=== PATIENT | male | born 1950 | race Two or more races ===

== ENCOUNTER 2020-07-19 11:45 | Outpatient (REF) | payer MEDICARE, SELFPAY | END 2020-07-19 11:46 | disposition home or self-care (01) | LOC: HO.LAB 11:45 | PROVIDERS: PCP Nurse Practitioner Family; Visit Provider Internal Medicine | DX: Z20.828 Contact with and (suspected) exposure to other viral communicable diseases (principal) | CPT/HCPCS: 87635 ==

== ENCOUNTER 2021-01-24 09:15 | Outpatient (REF) | payer MEDICARE, SELFPAY ==
[2021-01-24 11:12] LABS: PSA,Total (Free>4and<10) 0.64 ng/mL (0.00-4.00)
== END 2021-01-24 09:16 | disposition home or self-care (01) ==
LOC: HO.LAB 09:15
PROVIDERS: PCP Nurse Practitioner Primary Care; Visit Provider Urology
DX: N40.1 Benign prostatic hyperplasia with lower urinary tract symptoms (principal); N13.8 Other obstructive and reflux uropathy; Z12.5 Encounter for screening for malignant neoplasm of prostate
CPT/HCPCS: 36415; 84153

== ENCOUNTER → 2021-01-25 11:19 | Outpatient (BNVA) | payer MEDICARE, SELFPAY | PROVIDERS: PCP Nurse Practitioner Family; Visit Provider Urology | DX: Z13.89 Encounter for screening for other disorder (principal) | CPT/HCPCS: Q3014 ==

== ENCOUNTER 2023-04-26 11:10 | Outpatient (REF) | payer MEDICARE, SELFPAY ==
[2023-04-26 14:35] LABS: Prostate Specific Antigen 0.59 ng/mL (<0.05-4.0)
[2023-04-26 20:03] LABS: Appearance Urine Clear; Color Urine Yellow; Glucose Urine UA Negative (Negative); Leukocyte Esterase Urine Negative (Negative); Nitrite Urine Negative (Negative); PH 7.5 (5.0-9.0); Urine Blood Negative (Negative); Urine Ketones Negative (Negative); Urine Protein Negative (Neg-Trace)
== END 2023-04-26 11:11 | disposition home or self-care (01) ==
LOC: HO.HHCL 11:10
PROVIDERS: Visit Provider Family Medicine
DX: Z12.5 Encounter for screening for malignant neoplasm of prostate (principal); R30.0 Dysuria
CPT/HCPCS: 36415; 81003; 84153

== ENCOUNTER 2023-04-27 08:45 | Outpatient (REF) | payer MEDICARE, SELFPAY ==
--- NOTE | ~2023-04-27 | XR_ITS ---
EXAMINATION: XR LUMBOSACRAL SPINE WITH OBLIQUES CLINICAL INFORMATION: Low back pain radiating to left leg. COMPARISON: 10/31/2011 lumbar spine radiographs. TECHNIQUE: AP, both oblique, and lateral views of the lumbar spine. Lateral view of the lumbosacral junction. FINDINGS: There is normal lumbar lordosis and spinal alignment. Transitional anatomy is noted. Mild multilevel degenerative changes with degenerative disc disease most pronounced at L5-S1. There is no acute fracture. The soft tissues are unremarkable. Surgical clips overlie the mid to lower abdomen. XR/XR lumbar spine 4V min IMPRESSION: Transitional anatomy and mild multilevel degenerative changes without significant change. No acute abnormality.
== END 2023-04-27 08:46 | disposition home or self-care (01) ==
LOC: HO.HHCX 08:45
PROVIDERS: Visit Provider Family Medicine
DX: M54.50 Low back pain, unspecified (principal); M79.605 Pain in left leg
CPT/HCPCS: 72110

== ENCOUNTER 2024-06-17 08:02 | Outpatient (REF) | payer MEDICARE, SELFPAY ==
[2024-06-17 11:29] LABS: MANUAL DIFF FLAG NO
[2024-06-17 11:33] LABS: Basophils Percent Auto 0.8 % (0-2); Eosinophils Absolute Auto 0.8 X10*3/uL (0.0-0.4); Eosinophils Percent Auto 15.2 % (0-4); Imm Gran Abs Auto 0.02 X10*3/uL (0.00-0.03); Imm Gran Pct Auto 0.4 % (0.0-0.4); Lymphocytes Absolute Auto 1.8 X10*3/uL (1.2-4.9); Lymphocytes Percent Auto 33.7 % (20-40); Mean Corpuscular HGB Conc 35.7 g/dl (31.0-36.0); Mean Corpuscular Hemoglobin 33.6 pg (27.0-33.0); Mean Platelet Volume 9.4 fL (9.4-12.4); Monocytes Absolute Auto 0.4 X10*3/uL (0.1-1.2); Monocytes Percent Auto 8.4 % (2-11); Neutrophils Absolute Auto 2.2 x10*3/uL (2.0-8.3); Neutrophils Percent Auto 41.5 % (45-73); Platelet Count 201 X10*3/uL (160-400); Red Blood Count 4.47 X10*6/uL (4.60-5.80); Red Cell Distribution Width 12.7 % (11.0-16.0); White Blood Count 5.3 X10*3/uL (4.8-10.8)
[2024-06-17 11:44] LABS: Estimated Average Glucose 97 mg/dL; Total Hemoglobin (HGBA1C) 3684.1233 umol/L
[2024-06-17 12:03] LABS: Alanine Aminotransferase 19 U/L (0-40); Alkaline Phosphatase 82 U/L (39-117); Anion Gap 7 (12-20); Aspartate Amino Transferase 23 U/L (5-37); Bilirubin Total 0.4 mg/dL (0.0-1.0); Blood Urea Nitrogen 7 mg/dL (9-16); Calcium 8.5 mg/dL (8.4-10.2); Carbon Dioxide 29 mmol/L (22-29); Chloride 102 mmol/L (96-108); Cholesterol 157 mg/dL (<200); Estimated Glomerular Filt Rate > 60; Glucose Random 89 mg/dL (60-115); HDL Cholesterol 41 mg/dL (>40); LDL Cholesterol Calculated 102 mg/dL (<100); Potassium 3.6 mmol/L (3.3-5.1); Sodium 134 mmol/L (135-145); Total Protein 7.1 g/dL (6.5-8.0); Triglycerides 70 mg/dL (<150)
[2024-06-17 12:20] LABS: HBS Num1 5.85 mIU/mL (0-7.99); HBc Num1 0.25 S/CO (0.00-0.79); HBsAGNum1 0.39 S/CO (0.00-0.99); HIV AB/AG Nonreactive (Nonreactive); HIV Num 1 0.05 S/CO (0.00-0.99); Hepatitis A Antibody IgM 0.29 Index (0-0.79); Hepatitis B Core Antibody Nonreactive (Nonreactive); Hepatitis B Surface Antigen Negative (Negative); ~HepC Num1 0.21 S/CO (0.00-0.79); ~Hepatitis A Antibody IgM Nonreactive (Nonreactive); ~Hepatitis B Surface Antibody NONREACTIVE (Nonreactive); ~Hepatitis C Antibody Nonreactive (Nonreactive)
[2024-06-17 14:07] LABS: Reflex LDLD? No
== END 2024-06-17 08:03 | disposition home or self-care (01) ==
LOC: HO.HHCL 08:02
PROVIDERS: Visit Provider Internal Medicine
DX: E78.2 Mixed hyperlipidemia (principal); Z13.1 Encounter for screening for diabetes mellitus
CPT/HCPCS: 36415; 80053; 80061; 83036; 85025; 86704; 86706; 86709; 86803; 87340; 87389

== ENCOUNTER 2024-08-04 11:23 | Day surgery (SDC) | payer OTHER, SELFPAY ==
[2024-07-31 14:35] VITALS: BMI 26.0
--- NOTE | 2024-08-01 09:59 | HO.ANESPROP2 ---
Documented by User: Elida Squires NP 08/01/24 10:00 HPI - Anesthesia Eval Consult details Narrative: 73yo M for Colonoscopy [facility] Active Problems Active Problems: All Active Problems BPH w urinary obs/LUTS (Acute) Past Medical History Medical History (Updated 07/31/24 @ 14:35 by Winter Sarkar RN) Renal stones GERD (gastroesophageal reflux disease) Hyperlipidemia Depression Other obstructive and reflux uropathy Benign prostatic hyperplasia with lower urinary tract symptoms Surgical History Surgical History (Updated 07/31/24 @ 14:35 by Winter Sarkar RN) H/O colonoscopy Hx of exploratory laparotomy Hx of appendectomy Social History Social History Patient Tobacco Use Status: Never used Tobacco Use of substances other than those prescribed or required for medical reasons: No Are you DNR?: No Advance Directives: No Advance Directives Information Provided: Yes Advance Directives on File: No Recently lost weight without trying: No Nutrition Risks: No Nutritional Risk Poor oral hygiene: No Meds Allergies Allergy/AdvReac Type Severity Reaction Status Date / Time baclofen Allergy Unknown Unknown Verified 01/25/21 11:20 ibuprofen [IBUPROFEN] Allergy Unknown RASH Verified 01/25/21 11:20 Home Medications ?Medication ?Instructions ?Recorded ?Confirmed ?Last Taken ?Type zolpidem 10 mg tablet 10 mg PO BEDTIME PRN Insomnia 01/25/21 07/31/24 Unknown History fluticasone propionate 50 1 spray intranasal DAILY 07/31/24 07/31/24 Unknown History mcg/actuation nasal spray,suspension pravastatin 10 mg tablet 10 mg PO DAILY 07/31/24 07/31/24 Unknown History Exam Height,Weight and Vital Signs: Height 5 ft 6 in Weight 73.028 kg Assessment and Plan Assessment Anesthesia Assessment: Chart Reviewed Documented by User: Saba Mcleod MD 08/04/24 13:34 [facility] Past Medical History Medical History (Updated 07/31/24 @ 14:35 by Winter Sarkar RN) Renal stones GERD (gastroesophageal reflux disease) Hyperlipidemia Depression Other obstructive and reflux uropathy Benign prostatic hyperplasia with lower urinary tract symptoms Family History Family history of problems with anesthesia: No Surgical History Surgical History (Updated 07/31/24 @ 14:35 by Winter Sarkar RN) H/O colonoscopy Hx of exploratory laparotomy Hx of appendectomy History of Problems with Anesthesia: No Social History Social History Patient Tobacco Use Status: Never used Tobacco Use of substances other than those prescribed or required for medical reasons: No Are you DNR?: No Advance Directives: No Advance Directives Information Provided: Yes Advance Directives on File: No Recently lost weight without trying: No Nutrition Risks: No Nutritional Risk Poor oral hygiene: No Meds Allergies Allergy/AdvReac Type Severity Reaction Status Date / Time baclofen Allergy Unknown Unknown Verified 01/25/21 11:20 ibuprofen [IBUPROFEN] Allergy Unknown RASH Verified 01/25/21 11:20 Home Medications ?Medication ?Instructions ?Recorded ?Confirmed ?Last Taken ?Type zolpidem 10 mg tablet 10 mg PO BEDTIME PRN Insomnia 01/25/21 07/31/24 Unknown History fluticasone propionate 50 1 spray intranasal DAILY 07/31/24 07/31/24 Unknown History mcg/actuation nasal spray,suspension pravastatin 10 mg tablet 10 mg PO DAILY 07/31/24 07/31/24 Unknown History Exam Airway Mallampati Class: II TM Dist: >3cm Neck ROM: Full Assessment and Plan Assessment Anesthesia Assessment: Anesthesia Plan Discussed Final Anesthetic Review Family History of Problems with Anesthesia: No History of Problems with Anesthesia: No NPO: Yes ASA Class: II Final Preanesthetic Review: No Changes in Pt Med Stat, Meds/Allgs Chart Reviewed, Consent Obtained/Reviewed and Anes Risks/Benef Reviewed Patient Risk: Intermediate Procedure Risk: Low Anesthetic Plan Anesthetic Plan: TIVA Disposition: Standard PACU
[2024-08-04 12:19] VITALS: BMI 25.0
[2024-08-04 12:22] VITALS: BP 159/81; PULSE 82; RESP 16; TEMP 36.9; O2SAT 97
[2024-08-04] MEDS: Lactated Ringers 1,000 ML 100 ML IVCONT (12:44)
--- NOTE | 2024-08-04 13:32 | P.CONAN_ITS ---
REPLACED BY [facility] Active Problems Active Problems: All Active Problems BPH w urinary obs/LUTS (Acute) Past Medical History Medical History (Updated 07/31/24 @ 14:35 by Winter Sarkar RN) Renal stones GERD (gastroesophageal reflux disease) Hyperlipidemia Depression Other obstructive and reflux uropathy Benign prostatic hyperplasia with lower urinary tract symptoms Family History Family history of problems with anesthesia: No Surgical History Surgical History (Updated 07/31/24 @ 14:35 by Winter Sarkar RN) H/O colonoscopy Hx of exploratory laparotomy Hx of appendectomy History of Problems with Anesthesia: No Social History Social History Patient Tobacco Use Status: Never used Tobacco Use of substances other than those prescribed or required for medical reasons: No Are you DNR?: No Advance Directives: No Advance Directives Information Provided: Yes Advance Directives on File: No Recently lost weight without trying: No Nutrition Risks: No Nutritional Risk Poor oral hygiene: No Meds Allergies Allergy/AdvReac Type Severity Reaction Status Date / Time baclofen Allergy Unknown Unknown Verified 01/25/21 11:20 ibuprofen [IBUPROFEN] Allergy Unknown RASH Verified 01/25/21 11:20 Active Medications: Current Medications Lactated Ringer's (Lr) 1,000 mls @ 100 mls/hr IVCONT .Q10H SAWYER Last Admin: 08/04/24 12:44 Dose: 100 mls/hr Sodium Biphosphate/Sodium Phosphate (Sodium Phosphate,Carroll-Dibasic 133 Ml Enema) 133 ml SD ONCE PRN PRN Reason: Poor Colonoscopy Prep Results Home Medications ?Medication ?Instructions ?Recorded ?Confirmed ?Last Taken ?Type zolpidem 10 mg tablet 10 mg PO BEDTIME PRN Insomnia 01/25/21 07/31/24 Unknown History fluticasone propionate 50 1 spray intranasal DAILY 07/31/24 07/31/24 Unknown His tory mcg/actuation nasal spray,suspension pravastatin 10 mg tablet 10 mg PO DAILY 07/31/24 07/31/24 Unknown History Exam Height,Weight and Vital Signs: Height 5 ft 6 in Weight 70.307 kg Last Vital Signs Temp 98.4 F 08/04/24 12:22 Pulse 82 08/04/24 12:22 Resp 16 08/04/24 12:22 BP 159/81 H 08/04/24 12:22 Pulse Ox 97 08/04/24 12:22 O2 Del Method Room Air 08/04/24 12:22 Airway Mallampati Class: II TM Dist: >3cm Neck ROM: Full Assessment and Plan Assessment Anesthesia Assessment: Anesthesia Plan Discussed and Chart Reviewed Final Anesthetic Review Family History of Problems with Anesthesia: No History of Problems with Anesthesia: No NPO: Yes ASA Class: II Final Preanesthetic Review: No Changes in Pt Med Stat, Meds/Allgs Chart Reviewed, Consent Obtained/Reviewed and Anes Risks/Benef Reviewed Patient Risk: Intermediate Procedure Risk: Low Anesthetic Plan Anesthetic Plan: TIVA Disposition: Standard PACU
[2024-08-04 14:25] VITALS: BP 103/61; PULSE 72; RESP 16; TEMP 36.5; O2SAT 95
--- NOTE | 2024-08-04 14:26 | PM.OP ---
Brief Operative Note Date of Service: 08/04/24 Pre-op diagnosis: Screening Post-op diagnosis: other (Diverticulosis) Procedure: Colonoscopy to the cecum Surgeon: Andrew Lagunas MD Anesthesia: MAC Was an Cutting Table Operator used for this Procedure?: No Estimated blood loss (mL): 0 Pathology: none sent Condition: stable Disposition: PACU
[2024-08-04 14:30] VITALS: BP 92/51; PULSE 66
[2024-08-04 14:40] VITALS: BP 96/58; PULSE 75; RESP 18; O2SAT 98
[2024-08-04 14:45] VITALS: BP 99/65
[2024-08-04 14:55] VITALS: BP 111/71; PULSE 67; RESP 18; TEMP 36.6; O2SAT 98
--- NOTE | 2024-08-05 01:01 | OP_ITS ---
DATE OF SERVICE: 08/04/2024 SURGEON: Andrew Lagunas MD INDICATIONS: The patient presents for evaluation of colorectal cancer screening and personal history of tubular adenomas of the colon. Full consent has been obtained from him for this, including risks of bleeding and perforation. PREOPERATIVE DIAGNOSIS: POSTOPERATIVE DIAGNOSIS: PROCEDURE PERFORMED: Colonoscopy to the cecum. ESTIMATED BLOOD LOSS: COMPLICATIONS: ANESTHESIA: Monitored anesthesia care. ASSISTANTS: SPECIMENS: PREOPERATIVE DIAGNOSES: Colorectal cancer screening and personal history of tubular adenoma of the colon. POSTOPERATIVE DIAGNOSES: Colorectal cancer screening and personal history of tubular adenoma of the colon, diverticulosis and internal hemorrhoids. DESCRIPTION OF PROCEDURE: The patient was placed in the left lateral decubitus position. The digital rectal exam revealed no abnormalities. The Olympus video pediatric colonoscope was entered into the rectum and advanced easily to the cecum. Once in the cecum, I did identify normal-appearing cecal pouch with appendiceal orifice, and a normal-appearing ileocecal valve. The entire cecum and ileocecal valve appeared normal. There was transillumination of light deep in the right lower quadrant. The scope was slowly withdrawn assessing all mucosal surfaces carefully. Preparation was excellent. I did not visualize any sign of polyps, colitis, nor angiodysplasia. There was a mild amount of sigmoid diverticulosis. In the rectum, scope was retroflexed visualizing internal hemorrhoids, but no other pathology. The rectal mucosa appeared normal. The scope was straightened and withdrawn from the patient. He tolerated the procedure well, and was returned to the recovery area in stable condition. IMPRESSION: 1. Diverticulosis. 2. Internal hemorrhoids. PLAN: Given his previous history of tubular adenomas, I would recommend a followup coloscopy in 5 years. He will otherwise see me on a p.r.n. basis. MD YAKOV Levine/JAVY / [id number]
== END 2024-08-04 15:30 | disposition home or self-care (01) ==
PROVIDERS: PCP Internal Medicine; Visit Provider Internal Medicine
PROC: 0DJD8ZZ Inspection of Lower Intestinal Tract, Via Natural or Artificial Opening Endoscopic (ICD-10-PCS; CPT 45378; principal; 2024-08-04 13:20)
DX: Z12.11 Encounter for screening for malignant neoplasm of colon (principal); Z86.0101 Personal history of adenomatous and serrated colon polyps; K57.30 Diverticulosis of large intestine without perforation or abscess without bleeding; K64.8 Other hemorrhoids; K21.9 Gastro-esophageal reflux disease without esophagitis; E78.5 Hyperlipidemia, unspecified; N20.0 Calculus of kidney; F32.A Depression, unspecified; Z91.09 Other allergy status, other than to drugs and biological substances; Z79.51 Long term (current) use of inhaled steroids; Z79.899 Other long term (current) drug therapy; Z56.0 Unemployment, unspecified
CPT/HCPCS: G0105; J2003; J2704